=== PATIENT | male | born 1980 | race Caucasian/White ===

== ENCOUNTER 2019-02-18 10:40 | Emergency (ER) | payer OTHER ==
[2019-02-18 10:45] VITALS: BP 101/66; PULSE 89; TEMP 98; BMI 22.6
--- NOTE | 2019-02-18 11:15 | PDOC ---
History of Present Illness - General Chief Complaint: RX Refill Stated Complaint: MEDICATION Time Seen by Provider: 02/18/19 11:05 History Source: Patient Exam Limitations: No Limitations - History of Present Illness Initial Comments: 02/18/19 11:15 39-year-old male presents to ED for methadone since he states missed his clinic this morning due to work and oversleeping patient has no complaints presently and states takes 190 mg daily of methadone. Timing/Duration: other Associated Symptoms: reports: denies symptoms Past History - Travel Traveled outside of the country in the last 30 days: No Close contact w/someone who was outside of country & ill: No - Past Medical History Allergies/Adverse Reactions: Allergies Allergy/AdvReac Type Severity Reaction Status Date / Time Penicillins Allergy Verified 02/18/19 10:44 Home Medications: Ambulatory Orders Methadone HCl 190 mg PO DAILY 02/18/19 COPD: No - Suicide/Smoking/Psychosocial Hx Smoking History: Current every day smoker Number of Cigarettes Smoked Daily: 6 Information on smoking cessation initiated: No Drug/Substance Use Hx: Yes Patient Lives Alone: Yes Lives with/in: lives alone Review of Systems - Review of Systems Able to Perform ROS?: Yes Constitutional: No: Symptoms Reported HEENTM: No: Symptoms Reported Respiratory: No: Symptoms reported Cardiac (ROS): No: Symptoms Reported ABD/GI: No: Symptoms Reported : No: Symptoms Reported Musculoskeletal: No: Symptoms Reported Endocrine: No: Symptoms Reported Hematologic/Lymphatic: No: Symptoms Reported *Physical Exam - Vital Signs Last Vital Signs Temp Pulse Resp BP Pulse Ox 98 F 89 18 101/66 97 02/18/19 10:42 02/18/19 10:42 02/18/19 10:42 02/18/19 10:42 02/18/19 10:42 - Physical Exam General Appearance: Yes: Appropriately Dressed, Cachetic. No: Apparent Distress HEENT: positive: RODRICK Neck: positive: Supple Respiratory/Chest: positive: Lungs Clear, Normal Breath Sounds. negative: Respiratory Distress, Accessory Muscle Use Cardiovascular: positive: Regular Rhythm, Regular Rate. negative: Murmur Neurologic: positive: Normal Mood/Affect, Motor Strength 5/5 (ambulatory) Heart Score/ECG Review - ECG Intrepretation Rhythm: Regular Rhythm (rste 82, qt 425, qtc 495ms) Medical Decision Making - Medical Decision Making 02/18/19 11:26 Chief complaint: patient requesting Methadone 190 mg since he missed his dose this morning. Exam. Patient with normal vital signs with no signs of intraoral Plan unable to confirm dose since clinic is closed and contact phone numbers continue to ring without a voice mail. Will perform EKG to check for QTC prolongation and ordered 10 mg by mouth 02/18/19 11:34 Pt made aware of prolonged qtc and will be given copy of EKG so that he may bring to methadone clinic provider. Pt has been on 190mg x 4 1/2 yrs. ? taper *DC/Admit/Observation/Transfer Diagnosis at time of Disposition: Methadone dependence - Discharge Dispostion Disposition: HOME Condition at time of disposition: Good - Referrals - Patient Instructions Printed Discharge Instructions: Methadone Additional Instructions: Please go to the clinic tomorrow for your dose. Bring copy of EKG with you to show the provider at the clinic - Post Discharge Activity
[2019-02-18] MEDS ORDERED: METHADONE HCL 10 MG TABLET PO ONE (11:25)
[2019-02-18] MEDS ORDERED: METHADONE HCL 10 MG TABLET ONE (11:38)
--- NOTE | 2019-02-19 10:38 | EKG ---
Test Reason : Blood Pressure : / mmHG Vent. Rate : 082 BPM Atrial Rate : 082 BPM P-R Int : 144 ms QRS Dur : 090 ms QT Int : 424 ms P-R-T Axes : 076 045 033 degrees QTc Int : 495 ms NORMAL SINUS RHYTHM POSSIBLE LEFT ATRIAL ENLARGEMENT PROLONGED QT ABNORMAL ECG NO PREVIOUS ECGS AVAILABLE Confirmed by CARLOS MANUEL EDMONDSON, ASHLI ([id number]) on 02/19/2019 10:37:44 AM Referred By: Confirmed By:ASHLI HOROWITZ MD
== END 2019-02-18 11:45 | disposition home or self-care (01) ==
LOC: JER 10:40
DX: F11.20 Opioid dependence, uncomplicated (principal)
CPT/HCPCS: 93005; 93010; 99282-25